=== PATIENT | female | born 1930 | race Caucasian/White ===

== ENCOUNTER 2016-08-20 12:03 | Emergency (ER) | payer MEDICARE ==
[~2016-08-20] VITALS: Ht 147.3 cm; Wt 59.0 kg
[2016-08-20] MEDS ORDERED: [UNRECOGNIZED DRUG - REMARK] (12:21)
[2016-08-20 12:58] LABS: BASOPHILS % (AUTO) 0.5 % (0.0-2.0); EOSINOPHILS % (AUTO) 0.2 % (0.0-7.0); HEMATOCRIT 39.3 % (37-47); HEMOGLOBIN 13.7 G/DL (12.0-16.0); LYMPHOCYTES # (AUTO) 1.1 K/uL (20.0-40.0); LYMPHOCYTES % (AUTO) 11.7 % (20.5-51.5); MEAN CORPUSCULAR HEMOGLOBIN 29.5 UUG (27.0-31.0); MEAN CORPUSCULAR HGB CONC 35 g/dL (32.0-37.0); MEAN CORPUSCULAR VOLUME 84.7 FL (81.0-99.0); MONOCYTES # (AUTO) 0.9 K/uL (2.0-10.0); MONOCYTES % (AUTO) 9.8 % (0.0-11.0); NEUTROPHILS # (AUTO) 7.1 K/uL (1.8-8.9); NEUTROPHILS % (AUTO) 77.8 % (38.5-71.5); PLATELET COUNT (AUTO) 96 K/UL (150-450); RED BLOOD CELL COUNT(AUTO) 4.64 MIL/UL (4.2-5.4); RED CELL DISTRIBUTION WIDTH 13.9 % (11.5-14.5); WHITE BLOOD COUNT (AUTO) 9.1 K/UL (4.0-11.2)
[2016-08-20 13:07] LABS: CALCIUM 8.6 mg/dL (8.5-10.1); POTASSIUM 3.7 mmol/L (3.5-5.1)
[2016-08-20 13:10] LABS: BAND % (MANUAL) 2 % (0-10); LYMPHOCYTES % (MANUAL) 11 % (20-40); MONOCYTES % (MANUAL) 15 % (2-10); NEUTROPHILS % (MANUAL) 72 % (42-75); PLATELET ESTIMATE DECREASED
[2016-08-20 13:13] LABS: ALBUMIN 3.3 g/dL (3.4-5.0); BILIRUBIN,DIRECT 0.2 mg/dL (0.0-0.2); BILIRUBIN,TOTAL 0.9 mg/dL (0.2-1.0); TOTAL PROTEIN, SERUM 6.3 g/dL (6.4-8.2)
--- NOTE | 2016-08-20 13:46 | NUR ---
Patient discharged to home in stable conditon. Written and verbal after care instructions given. Patient verbalizes understanding of instructions.
== END 2016-08-20 13:49 | disposition home or self-care (01) ==
LOC: ER 12:03
DX: J20.9 Acute bronchitis, unspecified (principal); I10 Essential (primary) hypertension; Z85.3 Personal history of malignant neoplasm of breast
CPT/HCPCS: 36415; 71010; 83605; 85025; 87040; A4663